=== PATIENT | male | born 2000 | race Caucasian/White ===

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

== ENCOUNTER 2020-12-28 04:49 | Emergency (ER) | payer OTHER, BC ==
[~2020-12-28] VITALS: Ht 182.8 cm; Wt 145.0 kg
[2020-12-28] MEDS ORDERED: morphine INJ 10 MG/ML 1ML (SYR OR VIAL) IVP STA ×2 (05:13→06:21)
[2020-12-28] MEDS ORDERED: ONDANSETRON 4 MG/2 ML (SDV) Z0FRAN IVP ONE (05:15)
[2020-12-28 05:31] LABS: HEMATOCRIT 44 % (40-54); HEMOGLOBIN 15.3 G/DL (13.3-17.7); MEAN CORPUSCULAR HEMOGLOBIN 29 PG (25-34); MEAN CORPUSCULAR HGB CONC 35 G/DL (32-36); MEAN CORPUSCULAR VOLUME 85 FL (80-99); WHITE BLOOD COUNT 19.7 10^3/uL (4.3-11.0)
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
[2020-12-28 05:32] LABS: BASOPHILS # (AUTO) 0.1 10^3/uL (0.0-0.1); BASOPHILS % (AUTO) 1 % (0-10); EOSINOPHILS % (AUTO) 0 % (0-10); LYMPHOCYTES # (AUTO) 2.4 X 10^3 (1.0-4.0); LYMPHOCYTES % (AUTO) 12 % (12-44); MEAN PLATELET VOLUME 10.6 FL (7.4-10.4); MONOCYTES # (AUTO) 0.8 X 10^3 (0.0-1.0); MONOCYTES % (AUTO) 4 % (0-12); NEUTROPHILS # (AUTO) 16.2 X 10^3 (1.8-7.8); NEUTROPHILS % (AUTO) 82 % (42-75); PLATELET COUNT 328 10^3/uL (130-400)
[2020-12-28 05:44] LABS: CHLORIDE 104 MMOL/L (98-107); POTASSIUM 3.9 MMOL/L (3.6-5.0); SODIUM 139 MMOL/L (135-145)
[2020-12-28 05:45] LABS: ALANINE AMINOTRANSFERASE 51 U/L (0-55); ALBUMIN 4.6 GM/DL (3.2-4.5); ALKALINE PHOSPHATASE 94 U/L (40-136); BILIRUBIN,TOTAL 0.2 MG/DL (0.1-1.0); BUN/CREATININE RATIO 13; CALCIUM 8.9 MG/DL (8.5-10.1); CARBON DIOXIDE 19 MMOL/L (21-32); GFR ESTIMATED 85; GLUCOSE 106 MG/DL (70-105); TOTAL PROTEIN 7.9 GM/DL (6.4-8.2)
[2020-12-28 05:46] LABS: LYMPHOCYTES % (MANUAL) 18 %; MONOCYTES % (MANUAL) 2 %; NEUTROPHILS % (MANUAL) 80 %
[2020-12-28 05:47] LABS: PLATELET ESTIMATE ADEQUATE; RBC MORPH NORMAL
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
[2020-12-28] MEDS ORDERED: OXYC1TAB87 PO (07:04)
[2020-12-28] MEDS ORDERED: CYCL10TA9 PO (07:04)
[2020-12-28] MEDS ORDERED: CEPH500T PO (07:04)
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
[2020-12-28 07:19] VITALS: BP 128/79
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
== END 2020-12-28 07:21 | disposition home or self-care (01) ==
LOC: EDUNIT# 04:49 → ER FS 04:50
DX: S06.0X0A Concussion without loss of consciousness, initial encounter (principal); S83.91XA Sprain of unspecified site of right knee, initial encounter; S43.401A Unspecified sprain of right shoulder joint, initial encounter; S51.811A Laceration without foreign body of right forearm, initial encounter; S00.03XA Contusion of scalp, initial encounter; S20.229A Contusion of unspecified back wall of thorax, initial encounter; V89.2XXA Person injured in unspecified motor-vehicle accident, traffic, initial encounter
CPT/HCPCS: 36415; 70450; 70486; 71250; 72125; 72128; 72131; 73030; 73090; 73562; 74176; 80053; 85007; 85027; A4565; 96374; 96375; 96376

== ENCOUNTER 2022-01-31 02:49 | Emergency (ER) | payer BC, OTHER ==
[~2022-01-31 02:49] MED LIST: CEPH500T PO; CYCL10TA25 PO; OXYC1TAB87 PO
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
[2022-01-31 03:59] VITALS: BP 137/96
[2022-01-31] MEDS ORDERED: HYDROcodone/APAP 5 MG/325 MG (LORTAB) TAB PO ONE (04:00)
== END 2022-01-31 03:59 | disposition home or self-care (01) ==
LOC: EDUNIT# 02:49 → ER FS 02:51
DX: S02.5XXA Fracture of tooth (traumatic), initial encounter for closed fracture (principal); S00.83XA Contusion of other part of head, initial encounter; Z28.310 Unvaccinated for COVID-19; Y04.8XXA Assault by other bodily force, initial encounter
CPT/HCPCS: 99283

== ENCOUNTER 2022-12-14 12:50 | Emergency (ER) | payer BC, OTHER ==
[~2022-12-14] VITALS: Ht 185.5 cm; Wt 151.5 kg
[2022-12-14 13:19] LABS: BASOPHILS # (AUTO) 0.1 10^3/uL (0.0-0.1); BASOPHILS % (AUTO) 0 % (0-10); EOSINOPHILS # (AUTO) 0.1 10^3/uL (0.0-0.3); EOSINOPHILS % (AUTO) 1 % (0-10); HEMATOCRIT 43 % (40-54); HEMOGLOBIN 14.4 g/dL (13.3-17.7); LYMPHOCYTES # (AUTO) 2.3 10^3/uL (1.0-4.0); LYMPHOCYTES % (AUTO) 16 % (12-44); MEAN CORPUSCULAR HEMOGLOBIN 29 pg (25-34); MEAN CORPUSCULAR HGB CONC 33 g/dL (32-36); MEAN CORPUSCULAR VOLUME 87 fL (80-99); MEAN PLATELET VOLUME 10.5 fL (9.0-12.2); MONOCYTES # (AUTO) 0.7 10^3/uL (0.0-1.0); MONOCYTES % (AUTO) 5 % (0-12); NEUTROPHILS # (AUTO) 11.6 10^3/uL (1.8-7.8); NEUTROPHILS % (AUTO) 78 % (42-75); PLATELET COUNT 264 10^3/uL (130-400); WHITE BLOOD COUNT 14.8 10^3/uL (4.3-11.0)
[2022-12-14 13:25] LABS: ALBUMIN 4.2 GM/DL (3.2-4.5)
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
[2022-12-14 13:26] LABS: CHLORIDE 106 MMOL/L (98-107); POTASSIUM 4.2 MMOL/L (3.6-5.0); SODIUM 139 MMOL/L (135-145)
[2022-12-14 13:27] LABS: CALCIUM 9.1 MG/DL (8.5-10.1)
[2022-12-14 13:28] LABS: GLUCOSE 91 MG/DL (70-105); INR 1.1 (0.8-1.4); TOTAL PROTEIN 7.4 GM/DL (6.4-8.2)
[2022-12-14 13:29] LABS: CARBON DIOXIDE 20 MMOL/L (21-32)
[2022-12-14 13:30] LABS: BILIRUBIN,TOTAL 0.6 MG/DL (0.1-1.0)
[2022-12-14 13:31] LABS: ALKALINE PHOSPHATASE 91 U/L (40-136); FIBRIN DEGRADATION PRODUCTS 0.3 UG/ML (0.00-0.49)
[2022-12-14 13:32] LABS: CREATININE SERUM 0.87 MG/DL (0.60-1.30); GFR ESTIMATED 125
[2022-12-14 13:33] LABS: BUN/CREATININE RATIO 11
[2022-12-14 13:35] LABS: ALANINE AMINOTRANSFERASE 51 U/L (0-55)
[2022-12-14 13:41] LABS: BAND NEUTROPHILS 0 %; BASOPHILS % (MANUAL) 0 %; EOSINOPHILS % (MANUAL) 1 %; LYMPHOCYTES % (MANUAL) 19 %; MONOCYTES % (MANUAL) 5 %; NEUTROPHILS % (MANUAL) 75 %; RBC MORPH NORMAL
--- NOTE | 2022-12-14 13:42 | Diagnostic Imaging Report ---
CLINICAL INDICATION: Possible seizure. Patient with left-sided weakness. EXAM: Portable chest x-ray upright view. COMPARISON: None. FINDINGS: Lungs/pleura: Lungs are clear. There is no pneumothorax. There is no pleural effusion. Mediastinum: Unremarkable. Pulmonary vasculature: Unremarkable. Heart: Unremarkable. Bones/extrathoracic soft tissue: Unremarkable. IMPRESSION: There is no radiographic evidence of acute cardiopulmonary process. Dictated by: Dictated on workstation # [id number]
[2022-12-14 13:48] LABS: BILIRUBIN,URINE NEGATIVE (NEGATIVE); CLARITY,URINE CLEAR; COLOR,URINE YELLOW; GLUCOSE, URINE (UA) NEGATIVE (NEGATIVE); KETONES,URINE NEGATIVE (NEGATIVE); LEUKOCYTE ESTERASE ,URINE NEGATIVE (NEGATIVE); NITRITE,URINE NEGATIVE (NEGATIVE); PH,URINE 5.5 (5-9); PROTEIN,URINE NEGATIVE (NEGATIVE)
[2022-12-14 14:01] LABS: AMORPHOUS SEDIMENT,UR MOD AMOR URATES /LPF; BACTERIA,URINE NEGATIVE /HPF
--- NOTE | 2022-12-14 14:05 | Diagnostic Imaging Report ---
EXAMINATION: CT head without contrast. TECHNIQUE: Multiple contiguous axial images were obtained through the brain without the use of intravenous contrast. All CT scans use one or more of the following dose optimizing techniques: automated exposure control, MA and/or KvP adjustment based on patient size and exam type or iterative reconstruction. HISTORY: Dizziness. Right arm and leg contractions. Possible seizure. COMPARISON: 12/28/2020. FINDINGS: No large acute territorial ischemia, mass, or hemorrhage. No midline shift or mass effect. The ventricles, cortical sulci, and basilar cisterns are patent and unremarkable. The orbits are normal. Paranasal sinuses are normal. Mastoid air cells are clear. No soft tissue abnormality is seen. No osseus lesions or fractures are seen. IMPRESSION: 1. No large acute territorial ischemia, mass, or hemorrhage. Dictated by: Dictated on workstation # [id number]
[2022-12-14] MEDS ORDERED: NS IV 1000 ML 1,000 ML IV STA (14:22)
[2022-12-14] MEDS ORDERED: NS 100 ML (IVPB) BAG IV ONE (14:30)
[2022-12-14] MEDS ORDERED: IOHEXOL 350 MG/ML 100 ML (OMNIPAQUE 350) VIAL IV ONE (14:30)
[2022-12-14] MEDS ORDERED: HOLD METFORMIN - RECEIVED CONTRAST 20 ML VIAL IV SCH (14:30)
[2022-12-14] MEDS ORDERED: KETOROLAC 15 MG/ML VIAL IVP ONE (14:45)
--- NOTE | 2022-12-14 15:18 | Diagnostic Imaging Report ---
Clinical indications: Patient with left-sided weakness. Followup stroke. Exams: 1: Head CT with and without IV contrast. Auto Exposure Controls were utilized during the CT exam to meet ALARA standards for radiation dose reduction. 2: CT angiogram of the head and neck performed with 100 cc of Omnipaque 350 IV contrast. Sagittal and coronal MIP reformations were created for better visualization of vascular anatomy. CT angiogram was post-processed using RAPID LVO detection to include quantitative measurements of cerebral blood flow and automated results notification to the stroke and/or neurointerventional team. Comparison: Head CT without contrast dated 12/14/2022. Findings: Head CT: There is no evidence of acute cerebral infarct, intracranial hemorrhage, or gross mass effect. There is no abnormal IV contrast enhancement. The brain parenchymal volume appears appropriate for patient's age. There is normal west-white matter distinction. There is no significant midline shift or herniation. There is no evidence of hydrocephalus. The basal cisterns are unremarkable. The skull, extracranial soft tissue, and orbits are unremarkable. The paranasal sinuses are unremarkable. Temporal bones show no significant abnormality. CT ANGIOGRAM: There is dense contrast bolus involving the right subclavian vein and superior vena cava with skull streak artifact obscuring portions of aortic arch and proximal great vessels. Three-vessel aortic arch is seen. The brachiocephalic artery and bilateral subclavian arteries are patent. The bilateral common carotid arteries, bilateral cervical ICA and bilateral ECA are patent. The petrous, cavernous, supraclinoid ICA are patent. The bilateral ACAs and distal branches are patent. The bilateral MCAs and distal branches are patent. Dominant right cervical vertebral artery is seen. The bilateral cervical vertebral arteries are patent. It appears that the intradural left vertebral artery may end in PICA. It is difficult to completely visualize the small caliber intradural left vertebral artery. The right PICA is patent. The intradural right vertebral artery is patent. The basilar artery, bilateral superior cerebellar arteries, and bilateral labor conciliator and distal branches are patent. The dural venous sinuses are patent. The neck soft tissue structures show no significant abnormality. There is mild atelectasis involving both lungs. Cervical spine shows no significant abnormality. IMPRESSION: 1: There is no CT evidence of acute intracranial process. 2: CT angiogram of the [place] of [place] and neck shows no large vessel occlusion or intravascular thrombus. 3: There is a dominant cervical right vertebral artery due to small caliber left cervical vertebral artery which ends in PICA. Results of this report discussed with Dr. Burns via the telephone on 12/14/2022 at 1515 hours. Dictated by: Dictated on workstation # [id number]
[2022-12-14 16:33] VITALS: BP 144/72
== END 2022-12-14 16:27 | disposition short-term general hospital (02) ==
LOC: EDUNIT# 12:50 → ER 12:51
DX: R53.1 Weakness (principal); R42 Dizziness and giddiness; R51.9 Headache, unspecified
CPT/HCPCS: 36415; 70450; 70496; 70498; 71045; 80053; 81000; 82947; 84484; 85007; 85027; 85379; 85610; 85730; 93005; 93041